=== PATIENT | female | born 1985 | race African-American/Black ===

== ENCOUNTER 2021-01-15 07:38 | Emergency (ER) | payer OTHER ==
[~2021-01-15] VITALS: Ht 165.1 cm; Wt 75.6 kg
[2021-01-15 09:38] LABS: BILIRUBIN,URINE NEGATIVE (NEG); CLARITY,URINE CLEAR; COLOR,URINE YELLOW; NITRITE,URINE NEGATIVE (NEG); PROTEIN,URINE NEGATIVE (NEG-TRACE); UROBILINOGEN,URINE 0.2 mg/dL (0.2 mg/dL)
[2021-01-15] MEDS ORDERED: KETOROLAC 30 MG/ML VIAL. IVP ONE (09:45)
[2021-01-15] MEDS ORDERED: cefTRIAXone IV Push 1 GM VIAL. IVP ONE (09:45)
[2021-01-15 09:48] LABS: BACTERIA,URINE 0 /HPF (0-FEW); RBC,URINE 0 /HPF (0-2)
[2021-01-15 09:49] LABS: WBC,URINE OCC /HPF (0-4)
--- NOTE | 2021-01-15 09:50 | PHYS DOC ---
Past Medical History Additional Past Medical Histor: peptic ulcers Past Surgical History: No Surgical History Smoking Status: Light Tobacco Smoker Alcohol Use: Occasionally General Adult EDM: Chief Complaint: VAGINAL PROBLEM HPI: HPI: Patient is a 35 year old female who presents with here with 3 days of vaginal spotting and blood when she urinates with urinary frequency and mid and right lower pain that wraps around to her right flank. She states she has had some nausea. She denies fever, vomiting, diarrhea, dizziness, headache, numbness or tingling, chest pain, shortness of air. Rates her pain a 10 out of 10. Patient states she would also like to be checked for safety transmitted diseases and treated today. Review of Systems: Review of Systems: Constitutional: Denies fever or chills. [] Eyes: Denies change in visual acuity. [] HENT: Denies nasal congestion or sore throat. [] Respiratory: Denies cough or shortness of breath. [] Cardiovascular: Denies chest pain or edema. [] GI: +Right lower and mid abdominal pain,+ nausea, denies vomiting, bloody stools or diarrhea. [] : + dysuria. [] Musculoskeletal: +Right flank back pain or denies joint pain. [] Integument: Denies rash. [] Neurologic: Denies headache, focal weakness or sensory changes. [] Endocrine: Denies polyuria or polydipsia. [] Lymphatic: Denies swollen glands. [] Psychiatric: Denies depression or anxiety. [] Heart Score: C/O Chest Pain: No Current Medications: Current Medications Medications (Trade) Dose Ordered Sig/[facility] Start Time Stop Time Status Last Admin Dose Admin Ceftriaxone Sodium (Rocephin) 1 gm 1X ONCE 01/15/21 09:45 01/15/21 09:46 Ketorolac Tromethamine (Toradol 30mg Vial) 30 mg 1X ONCE 01/15/21 09:45 01/15/21 09:46 Allergies: Allergies: Allergies Coded Allergies Type Severity Reaction Last Updated Verified No Known Drug Allergies 01/15/21 No Physical Exam: PE: Constitutional: Well developed, well nourished, no acute distress, non-toxic appearance. [] HENT: Normocephalic, atraumatic, bilateral external ears normal, oropharynx moist, no oral exudates, nose normal. [] Eyes: PERRLA, EOMI, conjunctiva normal, no discharge. [] Neck: Normal range of motion, no tenderness, supple, no stridor. [] Cardiovascular:Heart rate regular rhythm, no murmur [] Lungs & Thorax: Bilateral breath sounds clear to auscultation [] Abdomen: Bowel sounds normal, soft, no tenderness, no masses, no pulsatile masses. [] Skin: Warm, dry, no erythema, no rash. [] Back: No tenderness, Right CVA tenderness. [] Extremities: No tenderness, no cyanosis, no clubbing, ROM intact, no edema. [] Neurologic: Alert and oriented X 3, normal motor function, normal sensory function, no focal deficits noted. [] Psychologic: Affect normal, judgement normal, mood normal. [] Current Patient Data: Labs: Laboratory Tests Test 01/15/21 08:30 POC Urine HCG, Qualitative Hcg negative (Negative) Vital Signs: Vital Signs Date Time Temp Pulse Resp B/P (MAP) Pulse Ox O2 Delivery O2 Flow Rate FiO2 01/15/21 08:20 98.0 102 18 181/94 (123) 100 Room Air 98.0 EKG: EKG: [] Radiology/Procedures: Radiology/Procedures: [] Impression: [facility] [address] [place], [place] [id number] IMAGING REPORT Signed PATIENT: RHONA HUMPHREY ACCOUNT: [id number] : 1985 LOCATION: ER AGE: 35 SEX: F EXAM STATUS: REG ER ORD. PHYSICIAN: BONNIE RANDLE APRN REASON: RIGHT LOWER ABD PAIN WITH RADIATION TO FLANK PROCEDURE: CT ABDOMEN PELVIS WO CONTRAST CT ABDOMEN+PELVIS WO dated 01/15/2021 10:14 AM Indication:Reason: RIGHT LOWER ABD PAIN WITH RADIATION TO FLANK / Spl. Instructions: / History: Comparison: No comparison is available. Technique: Helical noncontrast images were performed. Sagittal and coronal reconstructions were obtained. One or more of the following individualized dose reduction techniques were utilized for this examination: 1. Automated exposure control 2. Adjustment of the mA and/or kV according to patient size 3. Use of iterative reconstruction technique Findings: The lung bases are clear. The liver and spleen are homogeneous in density and normal in configuration. Evaluation of the solid organs is limited without IV contrast. The kidneys show no apparent solid mass, calcification or obstruction. There is an oval 1.5 cm hyperdense lesion in the lower left kidney showing internal attenuation of 95 HU, consistent with hemorrhagic cysts. The adrenal glands are not enlarged. The pancreas appears normal. No retroperitoneal or mesenteric adenopathy is seen. There is no apparent abdominal mass or inflammatory process. There is diastases of the rectus muscles. A normal appendix is seen inferior to the cecum. Images through the pelvis show no apparent abnormality of the urinary bladder. Some calcifications are present bilaterally, but are thought to be most consistent with phleboliths. No pelvic or inguinal adenopathy is seen. The uterus and left adnexal area. Normal for age. There may be a small right ovarian cyst. No separate pelvic mass or inflammatory process is seen. IMPRESSION: No identified acute abnormality. There is probably a small right ovarian cyst. Electronically signed by: Jane Omalley Jr., MD (01/15/2021 10:59 AM) [facility] DICTATED and SIGNED BY: JAEN OMALLEY Jr, MD DATE: 01/15/21 [id number] 0 Course & Med Decision Making: Course & Med Decision Making Pertinent Labs and Imaging studies reviewed. (See chart for details) See HPI. Alert and oriented x4. Ambulatory steady gait. Speaks in full clear sentences. Skin pink warm and dry. Right CVA tenderness. Abdomen is soft and nontender. Patient is up and walking on the side of the bed saying she is in too much pain for me to do the pelvic exam at this time. Pelvic Exam: Flight Information Expediter present Abdomen: Nontender External Genitalia: Normal Skin Speculum: Normal vaginal mucosa, White cervical discharge Bimanual: No adnexal masses or tenderness, No CMT CT abdomen pelvis shows no acute findings. Patient is positive for trichomonas. She is given Rocephin 1 g for gonorrhea coverage and to treat her urinary symptoms. I gave her Flagyl 2 g p.o. to treat trichomonas. I will place her on doxycycline. [] Trice Disclaimer: Trice Disclaimer: This electronic medical record was generated, in whole or in part, using a voice recognition dictation system. Departure Departure Impression: Primary Impression: Trichomoniasis of vagina Additional Impressions: Urinary symptom or sign Concern about STD in female without diagnosis Disposition: HOME / SELF CARE / HOMELESS Condition: STABLE Referrals: NO PCP (PCP) Patient Instructions: Trichomoniasis Additional Instructions: Follow-up with marketing administrative assistant or primary care physician. If you begin having vomiting and cannot keep down any fluids or worsening abdominal pain with fever return to emergency room. Take the antibiotic as prescribed until it is done with food. Plenty of fluids. Your chlamydia and gonorrhea results will be back in 48 hours and you will be called only if something is positive. Scripts Ibuprofen (IBUPROFEN) 600 Mg Tablet 600 MG PO PRN Q6HRS PRN for INFLAMMATION, #26 TAB Prov: BONNIE RANDLE APRN 01/15/21 Doxycycline Hyclate (DOXYCYCLINE HYCLATE) 100 Mg Capsule 1 CAP PO BID, #14 CAP Prov: BONNIE RANDLE [employer]USS DRIVER HELPER 01/15/21 BONNIE RANDLE [employer]USS DRIVER HELPER Jan 15, 2021 09:50
[2021-01-15 10:01] LABS: BASO # 0.1 x10^3/uL (0.0-0.2); BASO % 1 % (0-3); EOS # 0.2 x10^3/uL (0.0-0.7); EOS % 3 % (0-3); HEMATOCRIT 39.3 % (36.0-47.0); HEMOGLOBIN 13.2 g/dL (12.0-15.5); LYMPH # 1.2 x10^3/uL (1.0-4.8); LYMPH % 20 % (24-48); MEAN CORPUSCULAR HEMOGLOBIN 30 pg (25-35); MEAN CORPUSCULAR HGB CONC 34 g/dL (31-37); MEAN CORPUSCULAR VOLUME 90 fL (79-100); MONO # 0.6 x10^3/uL (0.0-1.1); MONO % 10 % (0-9); NEUT # 3.7 x10^3/uL (1.8-7.7); NEUT % 65 % (31-73); PLATELET COUNT 279 x10^3/uL (140-400); RED BLOOD COUNT 4.35 x10^6/uL (3.50-5.40); RED CELL DISTRIBUTION WIDTH 14.1 % (11.5-14.5); WHITE BLOOD COUNT 5.7 x10^3/uL (4.0-11.0)
[2021-01-15] MEDS ORDERED: ONDANSETRON PF 4 MG/2 ML VIAL. ONE (10:04)
[2021-01-15 10:09] LABS: CALCIUM 8.8 mg/dL (8.5-10.1); CREATININE 0.6 mg/dL (0.6-1.0); GFR 136.9
[2021-01-15] MEDS ORDERED: ONDANSETRON PF 4 MG/2 ML VIAL. IVP ONE (10:15)
[2021-01-15 10:16] LABS: ALBUMIN 3.8 g/dL (3.4-5.0); ALBUMIN/GLOBULIN RATIO 1.1 (1.0-1.7); TOTAL BILIRUBIN 0.2 mg/dL (0.2-1.0); TOTAL PROTEIN 7.2 g/dL (6.4-8.2)
[2021-01-15] MEDS ORDERED: metroNIDAZOLE 500 MG TABLET PO ONE (10:30)
[2021-01-15] MEDS ORDERED: IV NORMAL SALINE 1000ML BAG 1,000 ML IV ONE (11:00)
--- NOTE | 2021-01-15 11:02 | RAD ---
CT ABDOMEN+PELVIS WO dated 01/15/2021 10:14 AM Indication:Reason: RIGHT LOWER ABD PAIN WITH RADIATION TO FLANK / Spl. Instructions: / History: Comparison: No comparison is available. Technique: Helical noncontrast images were performed. Sagittal and coronal reconstructions were obtai mauro. One or more of the following individualized dose reduction techniques were utilized for this examinat ion: 1. Automated exposure control 2. Adjustment of the mA and/or kV according to patient size 3. Use of iterative reconstruction technique Findings: The lung bases are clear. The liver and spleen are homogeneous in density and normal in configuration . Evaluation of the solid organs is limited without IV contrast. The kidneys show no apparent solid m ass, calcification or obstruction. There is an oval 1.5 cm hyperdense lesion in the lower left kidney showing internal attenuation of 95 HU, consistent with hemorrhagic cysts. The adrenal glands are not enlarged. The pancreas appears normal. No retroperitoneal or mesenteric adenopathy is seen. There is no apparent abdominal mass or inflammatory process. There is diastases of the rectus muscles. A norm al appendix is seen inferior to the cecum. Images through the pelvis show no apparent abnormality of the urinary bladder. Some calcifications ar e present bilaterally, but are thought to be most consistent with phleboliths. No pelvic or inguinal adenopathy is seen. The uterus and left adnexal area. Normal for age. There may be a small right ovar jaydon cyst. No separate pelvic mass or inflammatory process is seen. IMPRESSION: No identified acute abnormality. There is probably a small right ovarian cyst. Electronically signed by: Malcom Pan Jr., MD (01/15/2021 10:59 AM) [facility]
[2021-01-15] MEDS ORDERED: IBUP-1007 PO (11:15)
[2021-01-15] MEDS ORDERED: DOXY100C3 PO (11:15)
[2021-01-15 12:27] VITALS: BP 138/76
[2021-01-16 16:15] LABS: GC PROBE Negative (Negative)
== END 2021-01-15 12:18 | disposition home or self-care (01) ==
LOC: ER 07:38
DX: A59.01 Trichomonal vulvovaginitis (principal); Z20.2 Contact with and (suspected) exposure to infections with a predominantly sexual mode of transmission; Z72.0 Tobacco use
CPT/HCPCS: 74176; 80053; 81001; 81025; 85025; 87491; 87591; 96361; 96374; 96375; 99285; J0696; J1885; J2405; J7030; Q0111; 96376